=== PATIENT | female | born 1980 | race Caucasian/White ===

== ENCOUNTER → 2016-08-28 | Outpatient (CLI) | payer BC | END | disposition disaster alternative care site (69) | LOC: GLAB 12:33 | DX: N80.9 Endometriosis, unspecified (principal) ==

== ENCOUNTER → 2016-09-26 | Outpatient (CLI) | payer BC | END | disposition disaster alternative care site (69) | LOC: GLAB 12:43 | DX: N80.9 Endometriosis, unspecified (principal) ==

== ENCOUNTER → 2016-10-24 | Outpatient (CLI) | payer BC | END | disposition disaster alternative care site (69) | LOC: GLAB 14:03 | DX: N80.9 Endometriosis, unspecified (principal) ==

== ENCOUNTER → 2016-11-22 | Outpatient (CLI) | payer BC | END | disposition disaster alternative care site (69) | LOC: GLAB 14:06 | DX: N80.9 Endometriosis, unspecified (principal) ==